=== PATIENT | male | born 1980 | race Caucasian/White ===

== ENCOUNTER → 2016-12-16 | Outpatient (CLI) | payer BC ==
[~2016-12-16] MED LIST: CPR500; IBUP-1050; SULF800T23
--- NOTE | 2016-12-16 14:25 | DIAGNOSTIC IMAGING REPORT ---
RIGHT FOOT MIN 3 VIEWS ROUTINE HISTORY: 36 years-old Male acute lateral right sided foot pain near the base of the fifth metatarsal. COMPARISON: Right foot radiographs 11/10/2005 TECHNIQUE: 3 views of the right foot FINDINGS: There is an acute to subacute appearing transverse fracture involving the proximal metadiaphyseal portion of the fifth metatarsal approximately 2.6 cm distal to the proximal tuberosity. No associated displacement or angulation. There is mild associated soft tissue swelling. There is chronic subluxation involving the second DIP joint. There is chronic spurring involving the dorsal talus and the navicular. IMPRESSION: Acute to subacute appearing nondisplaced transverse fracture involves the proximal metadiaphyseal portion of the fifth metatarsal. Note that fractures within this location are prone to nonunion (Sargent fracture). The above report was generated using voice recognition software. It may contain grammatical, syntax or spelling errors. Electronically signed by: Willy Collins M.D. 12/16/2016 2:24 PM Dictated Date/Time: 12/16/2016 2:19 PM
== END | disposition home or self-care (01) ==
LOC: C.RAD1850 14:03
PROVIDERS: ATTEND Family Medicine
DX: S92.354A Nondisplaced fracture of fifth metatarsal bone, right foot, initial encounter for closed fracture (principal); X58.XXXA Exposure to other specified factors, initial encounter

== ENCOUNTER → 2017-01-06 | Outpatient (CLI) | payer BC | END | disposition home or self-care (01) | LOC: C.RDSM 12:49 | PROVIDERS: ATTEND Family Medicine Sports Medicine | DX: Z87.81 Personal history of (healed) traumatic fracture (principal) ==

== ENCOUNTER → 2017-01-27 | Outpatient (CLI) | payer BC | END | disposition home or self-care (01) | LOC: C.RDSM 13:18 | PROVIDERS: ATTEND Family Medicine Sports Medicine | DX: S92.901A Unspecified fracture of right foot, initial encounter for closed fracture (principal); X58.XXXA Exposure to other specified factors, initial encounter ==